=== PATIENT | female | born 1980 | race African-American/Black ===

== ENCOUNTER 2024-06-03 08:50 | Emergency (ER) | payer MEDICAID ==
[~2024-06-03] VITALS: Ht 149.9 cm; Wt 60.0 kg
[2024-06-03 09:05] VITALS: O2SAT 99
[2024-06-03] MEDS: ONDANSETRON 4MG ODT PO ONE (10:30)
[2024-06-03 10:39] LABS: BASOPHILS % 0.4 % (0.0-2.0); EOSINOPHILS % 2.3 % (0.0-5.0); HEMATOCRIT. 29.9 % (36.0-48.0); HEMOGLOBIN. 9.3 g/dL (12.0-16.0); LYMPHOCYTES % 26.1 % (20.0-50.0); MEAN CORPUSCULAR HGB CONC 31.1 g/dL (31.0-37.0); MEAN CORPUSCULAR VOLUME 80.5 fL (81.0-99.0); MEAN PLATELET VOLUME 7.5 fl (7.4-10.4); MONOCYTES % 6.6 % (2.0-8.0); NEUTROPHILS % 64.6 % (40.0-76.0); PLATELET 342 x1000/uL (130-400); RED BLOOD CELL COUNT 3.71 mill/uL (4.2-5.4); RED CELL DISTRIBUTION WIDTH 19.9 % (11.6-14.6); WHITE BLOOD COUNT 5.7 x1000/uL (4.5-11.0)
[2024-06-03 10:50] LABS: CHLORIDE 108 mEq/L (98-107); POTASSIUM 3.9 mEq/L (3.5-5.1); SODIUM 139 mEq/L (136-145)
[2024-06-03 10:51] LABS: CARBON DIOXIDE 24 mEq/L (21-32)
[2024-06-03 10:52] LABS: CALCIUM 8.9 mg/dL (8.7-10.4)
[2024-06-03 10:55] LABS: HCG SCREEN NEGATIVE
[2024-06-03 10:56] LABS: CREATININE 0.6 mg/dL (0.6-1.0); GLUCOSE 82 mg/dL (70-105); UREA NITROGEN BLOOD 10 mg/dL (9-23)
[2024-06-03] MEDS ORDERED: ONDA-239 PO (11:42)
[2024-06-03 12:09] VITALS: BP 126/78; PULSE 79; RESP 16; TEMP 36.94740; O2SAT 99
== END 2024-06-03 12:10 | disposition home or self-care (01) ==
LOC: ER 08:50
DX: R11.2 Nausea with vomiting, unspecified (principal); R42 Dizziness and giddiness; D50.9 Iron deficiency anemia, unspecified
CPT/HCPCS: 80048; 84703; 85025; 36415; 99283; Q0162; Z7610 ×2